=== PATIENT | male | born 1945 | race Caucasian/White ===

== ENCOUNTER 2022-11-13 14:17 | Outpatient (RCR) | payer MEDICARE, SELFPAY ==
--- NOTE | ~2022-11-13 | XR_ITS ---
EXAMINATION: XR FOOT, RIGHT CLINICAL INFORMATION: Nonhealing wound right foot COMPARISON: None available. TECHNIQUE: AP, lateral, and oblique views of the right foot. FINDINGS: Amputation of the second toe. Arthritis at the first MTP joint and midfoot. Question old healed fracture of the distal shaft of the second metatarsal bone. No acute fracture, dislocation or x-ray evidence of osteomyelitis. Calcaneal spurs. Soft tissue arterial calcification. XR/XR foot RT min 3V IMPRESSION: No x-ray evidence of osteomyelitis.
[2022-12-18 09:01] LABS: MANUAL DIFF FLAG NO
[2022-12-18 09:14] LABS: Basophils Percent Auto 0.4 % (0-2); Eosinophils Absolute Auto 0.2 X10*3/uL (0.0-0.4); Eosinophils Percent Auto 2.1 % (0-4); Hematocrit 44.1 % (42.0-52.0); Hemoglobin 14.8 g/dl (14.0-18.0); Imm Gran Abs Auto 0.04 X10*3/uL (0.00-0.03); Imm Gran Pct Auto 0.5 % (0.0-0.4); Lymphocytes Absolute Auto 0.9 X10*3/uL (1.2-4.9); Lymphocytes Percent Auto 10.9 % (20-40); Mean Corpuscular HGB Conc 33.6 g/dl (31.0-36.0); Mean Corpuscular Hemoglobin 29.2 pg (27.0-33.0); Mean Corpuscular Volume 87.2 fL (80.0-98.0); Mean Platelet Volume 9.7 fL (9.4-12.4); Monocytes Absolute Auto 0.7 X10*3/uL (0.1-1.2); Monocytes Percent Auto 8.2 % (2-11); Neutrophils Absolute Auto 6.2 x10*3/uL (2.0-8.3); Neutrophils Percent Auto 77.9 % (45-73); Platelet Count 162 X10*3/uL (160-400); Red Blood Count 5.06 X10*6/uL (4.60-5.80); Red Cell Distribution Width 13.2 % (11.0-16.0)
[2022-12-18 09:38] LABS: Estimated Average Glucose 114 mg/dL; Hemoglobin A1c % 5.6 %
[2022-12-18 09:46] LABS: Anion Gap 12 (12-20); Blood Urea Nitrogen 13 mg/dL (9-16); C Reactive Protein 4.64 mg/dL (< or = 0.50); Calcium 9.8 mg/dL (8.4-10.2); Carbon Dioxide 28 mmol/L (22-29); Chloride 104 mmol/L (96-108); Estimated Glomerular Filt Rate > 60; Glucose Random 165 mg/dL (60-115); Potassium 4.3 mmol/L (3.3-5.1); Sodium 140 mmol/L (135-145)
[2022-12-18 10:05] LABS: Erythrocyte Sedimentation Rate 30 MM/HR (0-15)
== END 2023-01-11 14:10 | disposition home or self-care (01) ==
LOC: HO.WCC 14:17
PROVIDERS: PCP Internal Medicine; Visit Provider Physician Assistant
DX: E11.621 Type 2 diabetes mellitus with foot ulcer (principal); L97.512 Non-pressure chronic ulcer of other part of right foot with fat layer exposed; E11.51 Type 2 diabetes mellitus with diabetic peripheral angiopathy without gangrene; I10 Essential (primary) hypertension; L84 Corns and callosities; E44.1 Mild protein-calorie malnutrition; Z92.3 Personal history of irradiation; Z87.891 Personal history of nicotine dependence; Z85.038 Personal history of other malignant neoplasm of large intestine; Z92.21 Personal history of antineoplastic chemotherapy; Z89.421 Acquired absence of other right toe(s)
CPT/HCPCS: 11042; 15275; 36415; 73630; 80048; 83036; 84134; 85025; 85652; 86140; 99212; Q4187

== ENCOUNTER 2023-02-25 13:41 | Outpatient (RCR) | payer MEDICARE, SELFPAY | END 2023-03-11 16:00 | disposition home or self-care (01) | LOC: HO.WCC 13:41 | PROVIDERS: PCP Internal Medicine; Visit Provider Physician Assistant | DX: E11.621 Type 2 diabetes mellitus with foot ulcer (principal); L97.516 Non-pressure chronic ulcer of other part of right foot with bone involvement without evidence of necrosis; E11.51 Type 2 diabetes mellitus with diabetic peripheral angiopathy without gangrene; I10 Essential (primary) hypertension; Z92.3 Personal history of irradiation; Z89.421 Acquired absence of other right toe(s) | CPT/HCPCS: 11044; 99212 ==

== ENCOUNTER 2023-03-28 10:37 | Outpatient (REF) | payer MEDICARE, SELFPAY ==
--- NOTE | ~2023-03-28 | MR_ITS ---
EXAMINATION: MR FOOT WITHOUT AND WITH CONTRAST, RIGHT CLINICAL INFORMATION: Plantar nonhealing wound. Second digit amputation. Evaluate for osteomyelitis. COMPARISON: Right foot radiographs dated 12/18/2022. TECHNIQUE: Multisequence MR imaging of the right foot was obtained before and after the IV administration of 10 mL Gadavist contrast on a high field strength scanner. FINDINGS: Evaluation somewhat limited secondary to patient motion. There appears to be soft tissue ulceration along the plantar aspect of the 4th metatarsal head with adjacent skin thickening and subcutaneous enhancement, consistent with acute cellulitis. No organized fluid collection or abscess formation. Minimally increased T2 signal with normal T1 marrow signal in the plantar aspect of the 4th metatarsal head. There is minimal postcontrast enhancement. Findings could represent very early osteomyelitis. No cortical erosion or periosteal reaction. No additional abnormal marrow signal. Redemonstration of the second toe resection. 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 Atrophy throughout the intrinsic musculature of the foot which can be seen in diabetic patients. No evidence of acute ligament or tendon injury. MR/MR foot RT wo/w con IMPRESSION: 1. Soft tissue ulceration and cellulitis along the plantar aspect of the 4th metatarsal head. No abscess formation. Minimally increased T2 signal with normal T1 marrow signal in the plantar aspect of the 4th metatarsal head with minimal postcontrast enhancement. Findings could represent very early osteomyelitis. No cortical erosion or periosteal reaction. 2. Second toe resection. 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 3. Atrophy throughout the intrinsic musculature of the foot which can be seen in diabetic patients.
[2023-03-28] MEDS: gadobutroL 10 ML VIAL IVPUSH (12:07)
== END 2023-03-28 10:38 | disposition home or self-care (01) ==
LOC: HO.MRI 10:37
PROVIDERS: Visit Provider Surgery
DX: E11.621 Type 2 diabetes mellitus with foot ulcer (principal); L97.519 Non-pressure chronic ulcer of other part of right foot with unspecified severity
CPT/HCPCS: 73720; A9585

== ENCOUNTER 2023-04-22 07:53 | Outpatient (RCR) | payer MEDICARE, SELFPAY | END 2023-05-24 17:00 | disposition home or self-care (01) | LOC: HO.WCC 07:53 | PROVIDERS: PCP Internal Medicine; Visit Provider Physician Assistant | DX: E11.621 Type 2 diabetes mellitus with foot ulcer (principal); E11.51 Type 2 diabetes mellitus with diabetic peripheral angiopathy without gangrene; L97.512 Non-pressure chronic ulcer of other part of right foot with fat layer exposed | CPT/HCPCS: 11042; 99213 ==

== ENCOUNTER 2023-04-29 10:48 | Outpatient (AMB) | payer MEDICARE, SELFPAY ==
--- NOTE | 2023-04-29 10:51 | A.OFFVIS_ITS ---
Intake Vital Signs 3 04/29/23 11:10 Height 6 ft 3 in Weight 213 lb BMI 26.6 BP 164/86 H Blood Pressure Location Lt brachial Position Sitting Pulse 74 Pulse Source Pulse Oximeter Pulse Oximetry (%) 99 Intake Visit Reasons: ref.wound care/osteomyelitis Allergies No Known Allergies Allergy (Verified 04/29/23 11:17) HPI ref.wound care/osteomyelitis 2 HPI0 Details He presents for evaluation plantar fourth metatarsal head right ul nonhealing ulcer. He has had ulcer since October or November he says 2022. He also sees Dr Josselyn Larsen Podiatry who recommended [facility]. He says he thought area healed on March 11 and started wearing shoe two hours a day. He said after starting to wear shoe again wound started to leak. He sees Vascular Dr Carleen Harrlel at [facility] and was not scheduled for Surgery but getting further evaluation. He has chronic OM seen films and no specific organism at this time. He denies hardware in foot ,grafts or stents. He has no fever or chills. He reports sepsis admission 03/18/2019-03/27/2019 at [facility]. He had MRSA bacteremia sensitive to Doxycycline and Vancomycin/Daptomycin and received IV Vancomycin with last day of therapy 05/01/2019. 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 MRSA bacteremia Hypertension Diabetes mellitus Colon cancer Aortic stenosis Social History (Updated 05/01/23 @ 15:05 by Erin Ndiaye MD) Alcohol intake: former Patient Tobacco Use Status: Tobacco use Unknown Review of Systems Const All systems reviewed & are unremarkable except as noted in HPI and below Physical Exam Vital Signs: Last Vital Signs Pulse 74 04/29/23 11:10 BP 164/86 H 04/29/23 11:10 Pulse Ox 99 04/29/23 11:10 BMI result Body Mass Index 26.6 Const Other: General: cooperative Orientation/consciousness: patient oriented x3 HEENT Head: Yes normal to inspection Mouth: Normal oral and palatal mucosa present Eyes General: appearance normal, both eyes and all related structures Pupils: Equal, round and reactive pupils present Resp Effort & Inspection: normal respiratory effort Cardio Rate: regular rate Rhythm: regular rhythm GI Palpation (GI): Soft to palpation and nontender General: Yes no CVA tenderness Back/Spine/Pelvis Back: no CVA tenderness Skin General skin exam: no rashes or lesions noted Neuro General: patient oriented x3 Cranial nerves: Yes CN's II-XII intact bilaterally and Yes Equal, round and reactive pupils present Extrem General: Yes normal to inspection Psych Appearance: grossly normal Assessment & Plan Assessment & Plan (1) Plantar ulcer of right foot: Comment: He has nonhealing ulcer right plantar This is chronic osteomyelitis and likely MRSA Code(s): L97.519 - Non-pressure chronic ulcer of other part of right foot with unspecified severity Plan: Would agree with seeing Vascular before IV antibiotics or other therapies given to optimize care. IV Vancomycin or Daptomycin for six weeks would be helpful in healing likely but if patient declines consider po linezolid. Check CBC,ESR,CRP and creatinine before do this. He will call us and let us know what he decides He is moving forward with Vascular and Podiatry appointments but I did tell him that if Podiatry does debridement would need antibiotics anyway to help suppression of infection, Orders: Orders 2 Complete Blood Count Auto Diff Today L97.519 - Non-pressure chronic ulcer of other part of right foot with unspecified severity Erythrocyte Sedimentation Rate Today L97.519 - Non-pressure chronic ulcer of other part of right foot with unspecified severity CRP High Sensitivity Today L97.519 - Non-pressure chronic ulcer of other part of right foot with unspecified severity Basic Metabolic Panel Today L97.519 - Non-pressure chronic ulcer of other part of right foot with unspecified severity Coding Level of Care Code New Pt Level 3 (46346) Diagnoses Plantar ulcer of right foot L97.519
[2023-04-29 11:10] VITALS: BP 164/86; PULSE 74; O2SAT 99; BMI 26.6
== END 2023-04-29 13:41 | disposition home or self-care (01) ==
LOC: HO.HID 10:48
PROVIDERS: PCP Internal Medicine; Visit Provider Internal Medicine
DX: L97.519 Non-pressure chronic ulcer of other part of right foot with unspecified severity (principal)
CPT/HCPCS: 99203

== ENCOUNTER → 2023-04-29 10:48 | Outpatient (BNVA) | payer MEDICARE, SELFPAY | PROVIDERS: PCP Internal Medicine; Visit Provider Internal Medicine ==